=== PATIENT | female | born 1980 | race Caucasian/White ===

== ENCOUNTER 2021-03-06 12:00 | Emergency (ER) | payer SELFPAY ==
[2021-03-06 12:15] VITALS: BP 151/84; PULSE 95; RESP 16; TEMP 35.9; O2SAT 99
--- NOTE | 2021-03-06 12:58 | ED.DENTAL ---
HPI - Dental/Oral General Chief complaint: Dental/Oral Stated complaint: tooth pain Time Seen by Provider: 03/06/21 12:52 Source: patient and RN notes reviewed Mode of arrival: ambulatory Limitations: no limitations History of Present Illness HPI Narrative: Patient presents today complaining of left lower dental pain x5 to 6 days, worse over the last 2 days. Denies in the broken teeth or tooth with large cavities that she knows of. She currently rates her pain 5/10 and has been taking ibuprofen and Tylenol with some relief. Patient has a dentist appointment tomorrow. MD Complaint: tooth pain Related Data Home Medications Medication Instructions Recorded Confirmed Zyrtec 03/06/21 bupropion HCl mg PO 03/06/21 norgestimate-ethinyl estradiol tablet 03/06/21 [Tri-Sprintec (28)] Allergies Allergy/AdvReac Type Severity Reaction Status Date / Time levofloxacin Allergy Intermediate Swelling Verified 03/20/16 11:30 fluconazole Allergy Unknown N/V Verified 03/20/16 11:30 Penicillins Allergy Unknown Unknown Verified 03/06/21 12:27 doxycycline AdvReac Vomiting Verified 03/06/21 12:27 AMOXICILLIN TRIHYDRATE Allergy Unknown Unknown Uncoded 03/06/21 12:27 Review of Systems Review of Systems: CONSTITUTIONAL: Denies body aches, fever, chills, or sweats. EYES: Denies visual changes, redness, or discharge. ENT: Denies rhinorrhea, congestion, sore throat, or otalgia.+ Tooth pain CARDIOVASCULAR: Denies chest pain, palpitations, or edema. RESPIRATORY: Denies cough or dyspnea. GASTROINTESTINAL: Denies abdominal pain, nausea, vomiting, or diarrhea. GENITOURINARY: Denies dysuria or hematuria. SKIN: Denies rash, itching, or wounds. MUSCULOSKELETAL: Denies back pain, joint pain, or myalgia. NEUROLOGIC: Denies headache, numbness, tingling, or weakness. PSYCH: Denies depression or anxiety. PMFSH Comments At time of signature, I have reviewed and agree with nursing past medical, surgical, social and family history unless otherwise noted. Please see nursing chart for further information. There is no relevant family history pertinent to the presenting complaint Exam Narrative: GENERAL: Well-appearing, well-nourished, and in no acute distress. HEAD: Normocephalic, atraumatic. EYES: EOMI. No redness or drainage. Conjunctivae normal. ENT: Mucous membranes pink and moist. Throat normal. Uvula midline. Tenderness to tooth #17. No swelling of the gumline or jaw. No obvious periapical abscess. No obvious dental carry or fracture. NECK: Normal AROM. Supple. No lymphadenopathy. CHEST: No respiratory distress. EXTREMITIES: Normal range of motion. No edema. SKIN: Warm, dry, no rash. Capillary refill normal. Normal skin turgor. NEURO: No focal deficits. Alert and oriented x3. Gait steady. PSYCH: Normal affect. No signs of depression or anxiety. Course Vital Signs Vital signs: Vital Signs Temperature 96.7 F L 03/06/21 12:15 Pulse Rate 95 03/06/21 12:15 Respiratory Rate 16 03/06/21 12:15 Blood Pressure 151/84 H 03/06/21 12:15 Pulse Oximetry 99 03/06/21 12:15 Temperature 96.7 F L 03/06/21 12:15 Pulse Rate 95 03/06/21 12:15 Respiratory Rate 16 03/06/21 12:15 Blood Pressure 151/84 H 03/06/21 12:15 Pulse Oximetry 99 03/06/21 12:15 Reviewed. Pt has been instructed to follow up with her PCP regarding her elevated blood pressure today. MDM - Dental/Oral Differential Diagnosis Differential diagnosis: Likely gingival abscess, dental caries, toothache, dental abscess and fracture of tooth Critical Care Time Critical Care Time Critical Care Time: No Discharge Plan Discharge Clinical Impression: Toothache Patient Disposition: Home, Self-Care Condition: Stable Instructions: Antibiotic Form, Toothache (ED) Additional Instructions: Please take the clindamycin as prescribed until gone. Keep your appointment tomorrow with your dentist for follow-up. Continue Tylenol and ibuprofen on for p
== END 2021-03-06 13:13 | disposition home or self-care (01) ==
PROVIDERS: Emergency Provider Nurse Practitioner
DX: K08.89 Other specified disorders of teeth and supporting structures (principal)
CPT/HCPCS: 99203; G0463